=== PATIENT | male | born 1970 | race Two or more races ===

== ENCOUNTER 2018-06-24 11:08 | Outpatient (CLI) | payer OTHER ==
[~2018-06-24 11:08] MED LIST: ATIVAN1 M1; CELEXA20 MG; PANTOPRAZOLE SO20 MG; SIMVASTATIN20 MG; XARELTO20 MG; XARELTO20 MG PO
== END 2018-06-24 11:24 | disposition home or self-care (01) ==
LOC: NUCLEAR 11:08
DX: I82.401 Acute embolism and thrombosis of unspecified deep veins of right lower extremity (principal)

== ENCOUNTER 2019-07-17 09:35 | Outpatient (CLI) | payer OTHER | END 2019-07-17 09:49 | disposition home or self-care (01) | LOC: NUCLEAR 09:35 | DX: I87.2 Venous insufficiency (chronic) (peripheral) (principal) ==

== ENCOUNTER 2020-02-28 10:05 | Outpatient (CLI) | payer OTHER | END 2020-02-28 10:12 | disposition home or self-care (01) | LOC: NUCLEAR 10:05 | PROVIDERS: ATTEND Internal Medicine Hematology & Oncology | DX: I80.201 Phlebitis and thrombophlebitis of unspecified deep vessels of right lower extremity (principal); I87.2 Venous insufficiency (chronic) (peripheral) ==

== ENCOUNTER → 2021-06-11 10:40 | Outpatient (CLI) | payer OTHER | END | disposition home or self-care (01) | LOC: NUCLEAR 10:00 | PROVIDERS: ATTEND Internal Medicine Hematology & Oncology | DX: I87.2 Venous insufficiency (chronic) (peripheral) (principal); Z86.718 Personal history of other venous thrombosis and embolism; Z09 Encounter for follow-up examination after completed treatment for conditions other than malignant neoplasm ==

== ENCOUNTER 2023-06-23 10:05 | Outpatient (CLI) | payer OTHER | END 2023-06-23 10:06 | disposition home or self-care (01) | LOC: NUCLEAR 10:05 | PROVIDERS: ATTEND Internal Medicine Hematology & Oncology | DX: I87.2 Venous insufficiency (chronic) (peripheral) (principal); Z86.718 Personal history of other venous thrombosis and embolism ==